=== PATIENT | female | born 1980 | race Caucasian/White ===

== ENCOUNTER 2025-01-09 17:57 | Emergency (ER) | payer BC, SELFPAY ==
--- NOTE | 2025-01-09 17:59 | ED_ITS ---
HPI - General Adult General Chief complaint: Recheck/Abnormal Lab/Rx Stated complaint: WANTS MEDICINE REFILL Time Seen by Provider: 01/09/25 18:07 Source: patient Mode of arrival: ambulatory Limitations: no limitations History of Present Illness HPI narrative: 44-year-old female presents with concern for medication refill for bupropion, sertraline and atomoxetine. She has 1 week left of her supply. [place] and has an establishing primary care appointment in March. Related Data Home Medications ?Medication ?Instructions ?Recorded ?Confirmed ?Last Taken ?Type atomoxetine 40 mg capsule mg PO 01/09/25 Unknown History bupropion HCl 150 mg 24 hr tablet, mg PO 01/09/25 Unknown History extended release sertraline 100 mg tablet mg 01/09/25 Unknown History Allergies Allergy/AdvReac Type Severity Reaction Status Date / Time Sulfa (Sulfonamide Allergy Severe Anaphylaxis Verified 01/09/25 18:08 Antibiotics) Review of Systems Review of Systems: CONSTITUTIONAL: Denies malaise, chills, sweats, or fever. CARDIOVASCULAR: Denies chest pain, palpitations, or edema. RESPIRATORY: Denies cough or dyspnea. PSYCHIATRIC: Denies anxiety or depression. All systems reviewed & are unremarkable except as noted in HPI and below PMFSH Comments At time of signature, agree with nursing past medical, surgical, social and family history. There is no relevant family history pertinent to the presenting complaint Exam Narrative: GENERAL: Well-appearing, well-nourished, and in no acute distress. HEAD: Normocephalic, atraumatic. EYES: PERRLA ENT: Nares clear. Mucous membranes moist. NECK: Supple. CHEST: No respiratory distress. Speaks in full sentences. HEART: Regular rate and rhythm. SKIN: Warm, dry, no visible rash. NEURO: Alert and oriented x3. PSYCH: Normal mood and affect Course Course Emergency Course: Patient is aware of diagnosis, understands and agrees to treatment plan. Anticipatory guidance given. Patient agrees to follow-up as directed and is aware of reasons to seek care at the emergency department. Portions of this record may have been created with voice recognition software Level of Care: Express Care Visit Vital Signs Vital signs: Reviewed. Medical Decision Making MDM Narrative Medical decision making narrative: Patient is requesting refills on her daily medications. Reports she [place] a different [place] and the is waiting on her appointment with her new primary care provider in March. She has 1 week left of her medications and has not been without them yet. She has been on this medication combination for while. Critical Care Time Critical Care Time Critical Care Time: No Discharge Plan Discharge Clinical Impression: Encounter for medication refill Patient Disposition: Home Condition: Stable Instructions: General Patient Instructions Additional Instructions: We can refill your medications for 30 days. Follow-up with primary care for future refills. Patient Language: [place] Prescriptions: New atomoxetine 40 mg capsule 40 mg PO DAILY Qty: 30 0RF bupropion HCl [Wellbutrin XL] 150 mg tablet extended release 24 hr 150 mg PO QAM Qty: 30 0RF sertraline 100 mg tablet 200 mg PO DAILY Qty: 30 0RF No Action sertraline 100 mg tablet atomoxetine 40 mg capsule PO bupropion HCl 150 mg tablet extended release 24 hr PO Follow-up/Referrals: Fredi Santillan MD [Physician] - UNKNOWN,DOCTOR [Non-Staff] - Time of Disposition: 18:16
[2025-01-09 18:09] VITALS: BP 124/85; PULSE 73; RESP 16; TEMP 36.3; O2SAT 100
== END 2025-01-09 18:18 | disposition home or self-care (01) ==
PROVIDERS: Emergency Provider Nurse Practitioner
DX: Z76.0 Encounter for issue of repeat prescription (principal); F41.9 Anxiety disorder, unspecified; F32.A Depression, unspecified; F90.9 Attention-deficit hyperactivity disorder, unspecified type
CPT/HCPCS: 99211; G0463